=== PATIENT | female | born 1995 | race Caucasian/White ===

== ENCOUNTER 2023-04-13 17:54 | Inpatient (IN) | payer SELFPAY ==
[2023-04-13] MEDS ORDERED: Nalbuphine HCl 10 MG/ 1ML Amp IVPUSH PRN (18:41)
[2023-04-13] MEDS ORDERED: Calcium Carbonate 500 MG Tab.Chew PO PRN (18:41)
[2023-04-13] MEDS ORDERED: Lidocaine 1% 50 ML MDV INJECT PRN (18:41)
[2023-04-13] MEDS ORDERED: Ondansetron 4 MG/2 ML SDV IVPUSH PRN (18:41)
[2023-04-13] MEDS ORDERED: Penicillin G Potassium 5 MILLUNITS in Sodium Chloride 0.9% 100 ML IV ONE (19:00)
[2023-04-13 19:05] LABS: BASOPHILS PERCENT AUTO 0.3 % (0.0-1.0); EOSINOPHILS ABSOLUTE AUTO 0.1 K/mm3 (0.0-0.4); EOSINOPHILS PERCENT AUTO 0.8 % (0.0-6.0); HEMATOCRIT 37.9 % (37.0-47.0); HEMOGLOBIN 12.4 gm/dl (12.0-16.0); IMMATURE GRAN ABSOLUTE AUTO 0.05 K/mm3 (0.00-0.05); IMMATURE GRAN PERCENT AUTO 0.6 % (0.0-0.4); LYMPHOCYTES ABSOLUTE AUTO 1.6 K/mm3 (1.0-4.8); LYMPHOCYTES PERCENT AUTO 19.8 % (24.0-44.0); MEAN CORPUSCULAR HEMOGLOBIN 28.8 pg (28.0-32.0); MEAN CORPUSCULAR HGB CONC 32.7 g/dl (32.0-36.0); MEAN CORPUSCULAR VOLUME 87.9 fl (83.0-99.0); MONOCYTES ABSOLUTE AUTO 0.7 K/mm3 (0.0-0.8); MONOCYTES PERCENT AUTO 8.3 % (0.0-8.0); NEUTROPHILS ABSOLUTE AUTO 5.6 K/mm3 (1.8-7.7); NEUTROPHILS PERCENT AUTO 70.2 % (41.0-71.0); PLATELET COUNT,PLT 227 K/mm3 (150-400); RED BLOOD CELL COUNT 4.31 M/mm3 (4.10-5.30); WHITE BLOOD CELL COUNT,WBC 7.96 K/mm3 (3.9-11.3)
[2023-04-13] MEDS: Lactated Ringers 1,000 ML IV SCH ×2 (19:14→21:53)
[2023-04-13 19:25] LABS: CREATININE 0.7 mg/dL (0.55-1.02); EST CRCL DRUG DOSING (CG) 97.17 mL/min; URIC ACID 4.6 mg/dL (2.6-6.0)
[2023-04-13 19:28] LABS: CREATININE,URINE RAND 28.9 mg/dL (30.0-125.0); PROTEIN CREATININE RATIO,URINE 539.8 mg/g (0-149); PROTEIN,URINE RANDOM 15.6 mg/dL (0.0-11.8)
[2023-04-13] MEDS ORDERED: Oxytocin/Lactated Ringers 30 UNIT/500 ML BAG IV SCH (21:30)
[2023-04-13] MEDS: Penicillin G Potassium 2.5 MILLUNITS in Sodium Chloride 0.9% 100 ML IV SCH (23:26)
[2023-04-14] MEDS: Penicillin G Potassium 2.5 MILLUNITS in Sodium Chloride 0.9% 100 ML IV SCH ×6 (03:07→23:07)
[2023-04-14] MEDS: Lactated Ringers 1,000 ML IV SCH ×2 (06:54→17:14)
[2023-04-14] MEDS ORDERED: diphenhydrAMINE 50 MG/ML SDV IVPUSH PRN (08:53)
[2023-04-14] MEDS ORDERED: ePHEDrine 50 MG/ML SDV IVPUSH PRN (08:53)
[2023-04-14] MEDS ORDERED: fentaNYL 100 MCG/2 ML SDV EPIDUR PRN (08:53)
[2023-04-14 09:30] LABS: APPEARANCE,URINE CLEAR (Clear); BILIRUBIN,URINE NEGATIVE (Negative); COLOR,URINE YELLOW (Yellow); GLUCOSE,URINE NEGATIVE (Negative); KETONES,URINE NEGATIVE (Negative); LEUKOCYTE ESTERASE,URINE NEGATIVE (Negative); NITRITE,URINE NEGATIVE (Negative); OCCULT BLOOD,URINE 1+ (Negative); PROTEIN,URINE NEGATIVE (Negative); UROBILINOGEN,URINE 0.2 (0.2-1.0)
[2023-04-14 09:38] LABS: HEMOGLOBIN 11.7 gm/dl (12.0-16.0); MEAN CORPUSCULAR HGB CONC 33.4 g/dl (32.0-36.0); MEAN CORPUSCULAR VOLUME 86.8 fl (83.0-99.0); MEAN PLATELET VOLUME 9.9 fl (9.4-12.3); PLATELET COUNT,PLT 199 K/mm3 (150-400); RED BLOOD CELL COUNT 4.03 M/mm3 (4.10-5.30)
[2023-04-14 09:54] LABS: BACTERIA,URINE FEW /hpf (FEW); MUCUS,URINE NOT SEEN /hpf (FEW); RBC,URINE 0-5 /hpf (0-5); SQUAMOUS EPITHELIAL CELLS,UR 0-5 /hpf (0-5); WBC,URINE 0-5 /hpf (0-5)
[2023-04-14 09:55] LABS: URIC ACID 4.8 mg/dL (2.6-6.0)
[2023-04-14] MEDS: Acetaminophen 325 MG Tab PO PRN (10:27)
[2023-04-14] MEDS: Bupivacaine/fentaNYL/NS 100 ML Bag EPIDUR PRN (17:40)
[2023-04-15] MEDS: Bupivacaine/fentaNYL/NS 100 ML Bag EPIDUR PRN (02:00)
[2023-04-15] MEDS: Penicillin G Potassium 2.5 MILLUNITS in Sodium Chloride 0.9% 100 ML IV SCH (02:49)
[2023-04-15] MEDS ORDERED: Bupivacaine 0.25% 10 ML SDV ONE ×2 (03:00→04:12)
[2023-04-15] MEDS ORDERED: Oxytocin/Lactated Ringers 30 UNIT/500 ML BAG IV SCH (03:45)
[2023-04-15] MEDS ORDERED: Famotidine 20 MG/2 ML SDV IVPUSH PRN (03:52)
[2023-04-15] MEDS ORDERED: Metoclopramide 10 MG/2 ML SDV IVPUSH ONE ×2 (03:52→04:07)
[2023-04-15] MEDS ORDERED: Citric Acid/Sodium Citrate Solution 30 ML Cup PO ONE ×2 (03:52→04:07)
[2023-04-15] MEDS ORDERED: Azithromycin 500 MG in Sodium Chloride 0.9% 250 ML IV ONE (03:53)
[2023-04-15] MEDS ORDERED: Lactated Ringers 1,000 ML IV SCH ×2 (04:00→04:15)
[2023-04-15] MEDS ORDERED: Ampicillin 2 GM in Sodium Chloride 0.9% 100 ML IV SCH (04:00)
[2023-04-15] MEDS ORDERED: Sodium Chloride 0.9% 10 ML Syringe FLUSH PRN (04:07)
[2023-04-15] MEDS ORDERED: Morphine PF 10 MG/10 ML SDV ONE (04:08)
[2023-04-15] MEDS ORDERED: ceFAZolin 2 GM Vial ONE (04:08)
[2023-04-15] MEDS ORDERED: Ketorolac 30 MG/ML SDV ONE (04:08)
[2023-04-15] MEDS ORDERED: Oxytocin 10 Units/1 ML SDV ONE (04:08)
[2023-04-15] MEDS ORDERED: Ondansetron 4 MG/2 ML SDV ONE (04:08)
[2023-04-15] MEDS ORDERED: Lidocaine 2% with EPINEPHrine 1:200,000 20 ML SDV ONE (04:09)
[2023-04-15] MEDS ORDERED: Sodium Bicarbonate 8.4% 50 MEQ/50 ML SDV ONE (04:09)
[2023-04-15 04:13] LABS: BASOPHILS PERCENT AUTO 0.1 % (0.0-1.0); EOSINOPHILS PERCENT AUTO 0.2 % (0.0-6.0); HEMATOCRIT 33.9 % (37.0-47.0); HEMOGLOBIN 11.3 gm/dl (12.0-16.0); IMMATURE GRAN ABSOLUTE AUTO 0.04 K/mm3 (0.00-0.05); IMMATURE GRAN PERCENT AUTO 0.4 % (0.0-0.4); LYMPHOCYTES ABSOLUTE AUTO 1.1 K/mm3 (1.0-4.8); LYMPHOCYTES PERCENT AUTO 11.1 % (24.0-44.0); MEAN CORPUSCULAR HEMOGLOBIN 28.9 pg (28.0-32.0); MEAN CORPUSCULAR HGB CONC 33.3 g/dl (32.0-36.0); MEAN CORPUSCULAR VOLUME 86.7 fl (83.0-99.0); MEAN PLATELET VOLUME 9.5 fl (9.4-12.3); MONOCYTES ABSOLUTE AUTO 0.8 K/mm3 (0.0-0.8); MONOCYTES PERCENT AUTO 7.9 % (0.0-8.0); NEUTROPHILS PERCENT AUTO 80.3 % (41.0-71.0); PLATELET COUNT,PLT 192 K/mm3 (150-400); RED BLOOD CELL COUNT 3.91 M/mm3 (4.10-5.30); WHITE BLOOD CELL COUNT,WBC 9.94 K/mm3 (3.9-11.3)
[2023-04-15] MEDS ORDERED: Dexamethasone 4 MG/ML SDV ONE (05:04)
[2023-04-15] MEDS: Acetaminophen 325 MG Tab PO PRN (05:04)
[2023-04-15] MEDS: Lactated Ringers 1,000 ML IV SCH (05:06)
[2023-04-15] MEDS ORDERED: fentaNYL 100 MCG/2 ML SDV IVPUSH PRN (06:35)
[2023-04-15] MEDS ORDERED: Ondansetron 4 MG/2 ML SDV IVPUSH PRN (06:35)
[2023-04-15] MEDS ORDERED: diphenhydrAMINE 50 MG/ML SDV IVPUSH PRN ×2 (06:35→09:32)
[2023-04-15] MEDS ORDERED: Meperidine 50 MG/ML Vial IVPUSH PRN (06:35)
[2023-04-15] MEDS ORDERED: Misoprostol 200 MCG Tab ONE (06:37)
[2023-04-15] MEDS ORDERED: Penicillin G Potassium 2.5 MILLUNITS in Sodium Chloride 0.9% 100 ML IV SCH (07:00)
[2023-04-15] MEDS: Clindamycin Phosphate in D5W 900 MG in Premix Bag 1 BAG IV SCH ×4 (08:32→15:58)
[2023-04-15] MEDS ORDERED: Sodium Chloride 0.9% 10 ML Syringe FLUSH SCH (09:00)
[2023-04-15] MEDS ORDERED: Ondansetron 4 MG/2 ML SDV IVPUSH ONE (09:08)
[2023-04-15] MEDS ORDERED: Dextrose 5%-Lactated Ringers 1,000 ML IV SCH (10:30)
[2023-04-15] MEDS: Ampicillin 1 GM in Sodium Chloride 0.9% 100 ML IV SCH ×2 (11:54→19:42)
[2023-04-15] MEDS ORDERED: Ketorolac 30 MG/ML SDV IVPUSH SCH (12:45)
[2023-04-15] MEDS: Ketorolac 30 MG/ML SDV IVPUSH SCH (19:46)
[2023-04-16] MEDS: Clindamycin Phosphate in D5W 900 MG in Premix Bag 1 BAG IV SCH ×4 (00:07→10:33)
[2023-04-16] MEDS: Ketorolac 30 MG/ML SDV IVPUSH SCH (01:43)
[2023-04-16] MEDS ORDERED: Bisacodyl 10 MG Supp RECTAL PRN (02:51)
[2023-04-16] MEDS: Acetaminophen/oxyCODONE 325-5 MG Tab PO PRN ×4 (03:11→22:40)
[2023-04-16] MEDS: Ampicillin 1 GM in Sodium Chloride 0.9% 100 ML IV SCH (04:04)
[2023-04-16] MEDS ORDERED: Acetaminophen/oxyCODONE 325-5 MG Tab PO PRN (08:40)
[2023-04-16] MEDS ORDERED: Prenatal Multivitamin with Calcium/Folic Acid/Iron Tab PO SCH (09:00)
[2023-04-16] MEDS: Simethicone 80 MG Tab.Chew PO SCH ×4 (10:38→22:40)
[2023-04-16] MEDS: Ibuprofen 600 MG Tab PO PRN (13:10)
[2023-04-16] MEDS: Docusate Sodium 100 MG Cap PO PRN (13:11)
[2023-04-17] MEDS: Ibuprofen 600 MG Tab PO PRN (01:08)
[2023-04-17] MEDS: Acetaminophen/oxyCODONE 325-5 MG Tab PO PRN ×2 (02:54→08:18)
[2023-04-17] MEDS: Docusate Sodium 100 MG Cap PO PRN (08:18)
[2023-04-17] MEDS: Simethicone 80 MG Tab.Chew PO SCH (08:18)
== END 2023-04-17 10:50 | disposition home or self-care (01) | DRG 786 ==
LOC: JD.OBCHECK 17:54 → JD.OB 17:57 → JD.OBCHECK 19:03 → JD.OB 19:04 → OBSVTOIN 04-15 06:33 → JD.OB 04-15 06:34
PROVIDERS: ADMIT Family Medicine; ATTEND Obstetrics & Gynecology
PROC: 10D00Z1 Extraction of Products of Conception, Low, Open Approach (ICD-10-PCS; principal; 2023-04-15 04:30)
DX: O14.04 Mild to moderate pre-eclampsia, complicating childbirth (principal); O41.1230 Chorioamnionitis, third trimester, not applicable or unspecified; O62.1 Secondary uterine inertia; O24.420 Gestational diabetes mellitus in childbirth, diet controlled; O99.824 Streptococcus B carrier state complicating childbirth; Z37.0 Single live birth; Z3A.38 38 weeks gestation of pregnancy
CPT/HCPCS: 01967; 01968; 36415; 51701; 51702; 59025; 81001; 82565; 82570; 82947; 83615; 84156; 84450; 84460; 84520; 84550; 85025; 85027; 86592; 86850; 86900; 86901; 99140; A9270-GY; C1726; C1758; J0290; J0456; J0690; J0736; J1100; J1200; J1580; J1885; J2274; J2405; J2540; J2590; J2765; J3010; J3490; J7050; J7120; J7121; J7999

== ENCOUNTER 2023-04-26 23:34 | Emergency (ER) | payer SELFPAY ==
[2023-04-27 00:45] LABS: BASOPHILS PERCENT AUTO 0.3 % (0.0-1.0); EOSINOPHILS ABSOLUTE AUTO 0.1 K/mm3 (0.0-0.4); EOSINOPHILS PERCENT AUTO 1.9 % (0.0-6.0); HEMATOCRIT 28.9 % (37.0-47.0); HEMOGLOBIN 9.3 gm/dl (12.0-16.0); IMMATURE GRAN ABSOLUTE AUTO 0.02 K/mm3 (0.00-0.05); IMMATURE GRAN PERCENT AUTO 0.3 % (0.0-0.4); LYMPHOCYTES ABSOLUTE AUTO 1.6 K/mm3 (1.0-4.8); LYMPHOCYTES PERCENT AUTO 25.1 % (24.0-44.0); MEAN CORPUSCULAR HEMOGLOBIN 28.4 pg (28.0-32.0); MEAN CORPUSCULAR HGB CONC 32.2 g/dl (32.0-36.0); MEAN CORPUSCULAR VOLUME 88.4 fl (83.0-99.0); MEAN PLATELET VOLUME 8.1 fl (9.4-12.3); MONOCYTES ABSOLUTE AUTO 0.6 K/mm3 (0.0-0.8); MONOCYTES PERCENT AUTO 9.8 % (0.0-8.0); NEUTROPHILS ABSOLUTE AUTO 3.9 K/mm3 (1.8-7.7); NEUTROPHILS PERCENT AUTO 62.6 % (41.0-71.0); PLATELET COUNT,PLT 432 K/mm3 (150-400); RED BLOOD CELL COUNT 3.27 M/mm3 (4.10-5.30)
== END 2023-04-27 01:25 | disposition home or self-care (01) ==
LOC: JD.ED 23:34
DX: O90.89 Other complications of the puerperium, not elsewhere classified (principal); G89.18 Other acute postprocedural pain; L76.82 Other postprocedural complications of skin and subcutaneous tissue; Z79.899 Other long term (current) drug therapy
CPT/HCPCS: 36415; 85025; 86140; 99282; 99284